=== PATIENT | male | born 1935 | race Caucasian/White ===

== ENCOUNTER 2020-06-14 12:05 | Inpatient (IN) | payer OTHER, BC ==
[2020-06-14] VITALS (79 sets, daily range): BP systolic 82–213; BP diastolic 43–183
[~2020-06-14] VITALS: Ht 177.8 cm; Wt 76.5 kg
--- NOTE | 2020-06-14 10:55 | NUR ---
1055- Patient arrived via EMS to ICU, placed on monitor and helped to settle in.
--- NOTE | 2020-06-14 11:50 | NUR ---
1123- Nurse Shiloh text Dr. Ny for notification of patient arrival. 1132- Nurse Shiloh text Dr. Ny basic vitals/assessments 1142- Nurse paged Dr. Ny for notification of patient arrival 1148- Dr. Ny now on unit to assess patient. Patients daughters number given to Dr. Ny for him to call her. Chart given to Dr. Ny from other hospital. Nurse to continue to monitor patient status.
[2020-06-14 12:19] LABS: BE(vivo) 0.7 mmol/L (-2 to +3); HCO3 24.1 mmol/L (22.0-26.0); PCO2 35.1 mmHg (35.0-45.0); PO2 85.3 mmHg (80.0-100.0); pH 7.455 (7.360-7.450); sO2 96.9 % (92.0-98.0)
--- NOTE | 2020-06-14 12:28 | NUR ---
Patient tachypnic, short of breath, tachycardic, hypertensive. Once he appears more stable and comfortable, nurse will provide bath and look at back side for skin assessment.
--- NOTE | 2020-06-14 12:54 | NUR ---
1254- Andrea with wound care here to evaluate patients skin.
--- NOTE | 2020-06-14 13:24 | NUR ---
WOUND CONSULT; NO WOUNDS. ONLY BRUISING VS DTI TO THE RIGHT 3RD AND THE 5TH TOE. THE PATIENT HAS BREATHING DIFFICULTY WELL BLOOD PRESSURE ISSUES. NO OBVIOUS AREAS OF PRESSURE TO BUTTOCKS/SACRUM/COCCYX OR HEELS. RECOMMENDATIONS. BETADINE TO RIGHT 3RD AND 5TH TOE,Q2H TURNING,PRAFO BOOTS RN PRESENT
--- NOTE | 2020-06-14 13:33 | NUR ---
6940- Nurse talked with patients daughter, Jessica De Guzman, to update her on patients status. Nurse also expressed the wish for a central line, and intubation. She expressed she needs to call her mom and see what their wishes are. Jessica also explained that patient has been taking care of his for six months, who is currently on hospice, covid (+). She also expressed that her brother, patients son, is at [facility], covid (+). She is the one available at this moment. 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 She also expressed he fell this year and his right knee was painful, but no injury. Jessica expressed that the patient lives at home and takes care of himself independently and is relatively healthy until this.
--- NOTE | 2020-06-14 14:30 | NUR ---
1430- Physician from hospital that transferred him here called to check to make sure he arrived ok. Nurse asked about patients dentures and glassess and they expressed all his belongings are there at that hospital with patients , who is a patient there.
--- NOTE | 2020-06-14 14:37 | NUR ---
1433- Patients daughter, Jessica De Guzman, called back and expressed that she spoke with patients and said to do everything we can, unless the patient doesn't want it. Nurse did talk with the patient about intubation, in lay kiana terms, he expressed he doesn't know what it all means. This was informed to patients daughter and she said to intubate and place a central line and do everything possible to help him. 1436- This was informed to Dr. Kidd.
--- NOTE | 2020-06-14 15:35 | NUR ---
1535- Patient intubated by Dr. Kidd. 1700- Og tube placed, Cunningham catheter placed, patient had not voided since arrival. Central line was placed. Sepsis protocol in place.
[2020-06-14 15:47] LABS: HEMATOCRIT 36.6 % (42.0-52.0); HEMOGLOBIN 12.4 gm/dL (14.0-18.0); MCH 31.1 pg (26.0-34.0); MCHC 33.8 g/dL (28.0-37.0); RBC 3.98 mil/uL (4.50-6.00); RDW 13.7 % (10.5-14.5); WBC 10.8 thou/uL (4.0-11.0)
[2020-06-14 15:57] LABS: CALCIUM 8.7 mg/dL (8.5-10.1); CREATININE 1.3 mg/dL (0.7-1.3); POTASSIUM 4.8 mmol/L (3.5-5.1)
[2020-06-14 16:03] LABS: ALBUMIN 2.2 g/dL (3.4-5.0); CALCIUM 8.5 mg/dL (8.5-10.1); CREATININE 1.3 mg/dL (0.7-1.3); TOTAL BILIRUBIN 0.6 mg/dL (0.2-1.0); TOTAL PROTEIN 5.7 g/dL (6.4-8.2)
--- NOTE | 2020-06-14 16:52 | NUR ---
VAT CONSULTED FOR A CL FOR THIS PT IN ICU WITH COVID. 5FRTL PLACED RT IJ, TIP AT THE CAJ, PLEASE SEE NI FOR DETAILS.
[2020-06-14 17:21] LABS: URINE BILIRUBIN NEGATIVE (Negative); URINE BLOOD 1+ (Negative); URINE CLARITY CLEAR; URINE COLOR YELLOW; URINE GLUCOSE-RANDOM* NEGATIVE (Negative); URINE KETONES NEGATIVE (Negative); URINE LEUKOCYTES-REFLEX NEGATIVE (Negative); URINE NITRITE-REFLEX NEGATIVE (Negative); URINE PROTEIN (DIPSTICK) 1+ (Negative); URINE SPECIFIC GRAVITY 1.025 (1.005-1.035); URINE UROBILINOGEN 0.2 E.U./dl (0.2-1.0)
[2020-06-14 17:22] LABS: BE(vivo) -1.9 mmol/L (-2 to +3); PCO2 40.1 mmHg (35.0-45.0); pH 7.377 (7.360-7.450); sO2 98.1 % (92.0-98.0)
[2020-06-14 17:47] LABS: BACTERIA-REFLEX 1-9 Few /HPF (None Seen); CASTS None Seen /LPF (None Seen); CRYSTALS None Seen /LPF (None Seen); SQUAMOUS 0-3 Few /LPF (0-3); URINE RBC 0-2 Rare /HPF (0-2); URINE WBC-REFLEX None Seen /HPF (0-5)
--- NOTE | 2020-06-14 18:52 | NUR ---
1851- 3 hour Reassessment sent to Dr. Ny Reported: Pt Status: Intubated at 1535, line placed, ponce placed MAP 58 CVP 6 Lactate: last was 1.5 UOP 270ml since ponce placed, trending down BMP: Just sent another lab.
[2020-06-14 19:14] LABS: CALCIUM 7.6 mg/dL (8.5-10.1); CREATININE 1.2 mg/dL (0.7-1.3); POTASSIUM 4.7 mmol/L (3.5-5.1)
[2020-06-15] VITALS (78 sets, daily range): BP systolic 85–162; BP diastolic 48–84
[2020-06-15 01:09] LABS: ABSOLUTE NEUTROPHILS 7.5 thou/uL (1.4-8.2); BASOPHILS 0.1 % (0.0-2.0); EOSINOPHILS 0.2 % (0.0-3.0); HEMATOCRIT 34.3 % (42.0-52.0); HEMOGLOBIN 11.3 gm/dL (14.0-18.0); LYMPHOCYTES 2.7 % (24.0-44.0); MCH 30.6 pg (26.0-34.0); MCV 92.6 fL (80.0-100.0); MONOCYTES 2.6 % (1.0-8.0); PLATELET COUNT 195 thou/uL (150-400); POLYS 94.4 % (36.0-66.0); RDW 13.5 % (10.5-14.5); WBC 7.9 thou/uL (4.0-11.0)
[2020-06-15 01:23] LABS: CALCIUM 7.7 mg/dL (8.5-10.1); CREATININE 1.1 mg/dL (0.7-1.3); POTASSIUM 4.8 mmol/L (3.5-5.1)
[2020-06-15 03:33] LABS: BE(vivo) -3.3 mmol/L (-2 to +3); HCO3 20.6 mmol/L (22.0-26.0); PCO2 32.8 mmHg (35.0-45.0); PO2 111.3 mmHg (80.0-100.0); pH 7.415 (7.360-7.450); sO2 98.2 % (92.0-98.0)
[2020-06-15 06:16] LABS: CALCIUM 8.1 mg/dL (8.5-10.1); CREATININE 1.1 mg/dL (0.7-1.3); POTASSIUM 4.6 mmol/L (3.5-5.1); TOTAL BILIRUBIN 0.4 mg/dL (0.2-1.0); TOTAL PROTEIN 5.9 g/dL (6.4-8.2)
[2020-06-15 06:39] LABS: APTT 33.1 Seconds (24.5-32.8); FIBRINOGEN 359.5 mg/dL (210-360); INR 1.1; PROTIME 11.6 Seconds (9.3-11.4)
--- NOTE | 2020-06-15 06:43 | NUR ---
Report received, care assumed. Pt continues on vent management. Not following commands. No sedation vacation done, pt not meeting criteria. FIO2 at 100%. Assessments done as documented. FIO2 decreased to 80% at 0400. Pt tolerating without complications. Will continue to monitor.
[2020-06-15] MEDS ORDERED: GUANFACINE HCL2 MG PO (10:41)
[2020-06-15] MEDS ORDERED: CLONIDINE HCL0.1 MG PO (10:45)
[2020-06-15] MEDS ORDERED: LOSARTAN POTASS50 MG PO (10:46)
--- NOTE | 2020-06-15 12:10 | EKG ---
[address] [place] [address] ELECTROCARDIOGRAM REPORT Name: ROD PERALTA Room #: 241-P [facility] IN .R.#: [id number] Admission: 06/14/20 Attend Phys: Narendra Cano MD Discharge: Date of : 35 Report #: [id number] [facility] Test Date: 2020-06-15 Test Time: 12:04:44 Pat Name: ROD PERALTA Department: Room: 241 P Gender: M Duct Cleaner: DIA : [id number] Requested By: Judy Padilla Order Number: [id number] MD: John Oates Measurements Intervals [place] Rate: 143 P: 34 MT: 139 QRS: 18 QRSD: 113 T: 161 QT: 271 QTc: 418 Interpretive Statements AFIB Repolarization abnormality, prob rate related No previous ECG available for comparison Electronically Signed On 06-15-2020 12:10:25 [employer] by John Oates [email or web address] <ELECTRONICALLY SIGNED> By: John Oates MD, [facility] 06/15/20 1210 1204 1204 John Oates MD, FACC /EPI
[2020-06-15 16:51] LABS: CALCIUM 6.6 mg/dL (8.5-10.1); MAGNESIUM 1.8 mg/dL (1.8-2.4); POTASSIUM 4.2 mmol/L (3.5-5.1)
--- NOTE | 2020-06-15 18:59 | NUR ---
REPORT RECIEVED O700. PT VENTILATOR SETTINGS TITRATED PER STROMM AT 1000. TUBE FEED INITIATED AT 1000 VITAL HP 65 ML/HR GOAL. 1030 PT HEART RATE INCREASING INTO 140'S. RONDA ORDERED CARDIZEN BOLUS AT 1030. CARDIZEN GTT INTITIATED AT 1130 AND CARDIOLOGY STARTED. EKG OBTAINED. IV METOPROLOL Q6 STARTED PER CARDIOLOGY. HR WITHIN GOAL SINCE METOPROLOL INITIATION. AFEBRILE. ADEQUATE OUTPUT. PROGRESSING IN NURSING PLAN OF CARE
[2020-06-16] VITALS (90 sets, daily range): BP systolic 86–126; BP diastolic 36–61
[2020-06-16 03:14] LABS: BE(vivo) -4.7 mmol/L (-2 to +3); HCO3 24.3 mmol/L (22.0-26.0); PCO2 64.7 mmHg (35.0-45.0); PO2 81.9 mmHg (80.0-100.0); sO2 93.1 % (92.0-98.0)
[2020-06-16 03:15] LABS: pH 7.192 (7.360-7.450)
[2020-06-16 04:51] LABS: ABSOLUTE NEUTROPHILS 10.6 thou/uL (1.4-8.2); BASOPHILS 0.5 % (0.0-2.0); HEMATOCRIT 32.2 % (42.0-52.0); HEMOGLOBIN 10.5 gm/dL (14.0-18.0); LYMPHOCYTES 2.1 % (24.0-44.0); MCH 30.8 pg (26.0-34.0); MCHC 32.6 g/dL (28.0-37.0); MCV 94.2 fL (80.0-100.0); PLATELET COUNT 193 thou/uL (150-400); POLYS 94.4 % (36.0-66.0); RBC 3.42 mil/uL (4.50-6.00); RDW 14.2 % (10.5-14.5); WBC 11.2 thou/uL (4.0-11.0)
[2020-06-16 05:23] LABS: ALBUMIN 1.9 g/dL (3.4-5.0); CALCIUM 8.1 mg/dL (8.5-10.1); CREATININE 1.2 mg/dL (0.7-1.3); POTASSIUM 4.6 mmol/L (3.5-5.1); TOTAL BILIRUBIN 0.2 mg/dL (0.2-1.0); TOTAL PROTEIN 5.7 g/dL (6.4-8.2)
--- NOTE | 2020-06-16 12:16 | NUR ---
WOUND CONSULT; THE RIGHT 3RD AND 5TH TOE. THE SKIN IS INTACT. THE TOES ARE NORMAL TEMP. THE PATIENT IS IN COVID RESTRICTIONS. MY CONCERNS FOR THESE AREAS GETTING WORSE IS MINIMAL BASED ON MY ASSESSMENT. I WILL CONTINUE TO FOLLOW AND BE WATCHFUL. DISCUSSED WITH RN.
--- NOTE | 2020-06-16 15:13 | NUR ---
1513- Patients daughter, Jessica, called and nurse updated her on patient status and plan of care. Nurse informed her that the Physician and nurse expressed patients teeth and glasses were in his wifes room the day he was transfered here. She had inquired. No belongings were sent with patient upon his transfer. Nurse expressed to return call to the other facility, or her moms new location, or EMS.
--- NOTE | 2020-06-16 15:26 | NUR ---
Patient admits from [facility] in transfer. Patient COVID positive Dec 9, admits with increase need in oxygen/resp distress. Patient intubated and sedated. Sp with RN and dtr Jessica De Guzman. She reports patient was caring for spouse, Caroline kennedy, who was on hospice with [facility]. She has subsequently recently placed her mom at [facility] with [facility] cont to follow at facility. Patient spouse also COVID positive. Patients Covid positive at [facility]. Patient dtr COVID positive quarntine at home. Jessica reports as of Friday she is not positive. She reports she has been helping her parents at home. Support to dtr. [facility] following for dc needs.
--- NOTE | 2020-06-16 19:22 | NUR ---
Patient not progressing towards plan of care as evidenced by continued need for ventilator/oxygen. Plan of care is to continue to monitor oxygenation/ventilation needs, vital signs, sedation requirements, and tube feedings. He has not had a bowel movement in a few days, will talk with physician tomorrow if does not have one tonight.
[2020-06-17] VITALS (32 sets, daily range): BP systolic 86–180; BP diastolic 47–98
[2020-06-17 06:00] LABS: CALCIUM 8.2 mg/dL (8.5-10.1); CREATININE 1.5 mg/dL (0.7-1.3); POTASSIUM 5.1 mmol/L (3.5-5.1)
[2020-06-17 06:04] LABS: ABSOLUTE NEUTROPHILS 11.6 thou/uL (1.4-8.2); BASOPHILS 0.1 % (0.0-2.0); HEMATOCRIT 32.5 % (42.0-52.0); HEMOGLOBIN 10.6 gm/dL (14.0-18.0); LYMPHOCYTES 1.3 % (24.0-44.0); MCH 30.5 pg (26.0-34.0); MCHC 32.6 g/dL (28.0-37.0); MCV 93.7 fL (80.0-100.0); MONOCYTES 6.5 % (1.0-8.0); PLATELET COUNT 203 thou/uL (150-400); POLYS 92.1 % (36.0-66.0); RBC 3.46 mil/uL (4.50-6.00); RDW 14.7 % (10.5-14.5); WBC 12.6 thou/uL (4.0-11.0)
--- NOTE | 2020-06-17 08:23 | NUR ---
0820- CPAP TRIAL [id number], PT HEART RATE 130'S, IRREGULAR, PATIENT DIAPHORETIC.
--- NOTE | 2020-06-17 16:26 | NUR ---
Nurse updated Dr. Dupree and Dr. Kidd in regards to patient having coffee ground output from oral gastric tube, with residual checks. Nurse also noted residual checks as were noted. Dr. Dupree expressed she will order protonix IV and something to help him have a bowel movement, as one has not been noted since the . Dr. Kidd expressed ok to continue tube feedings at this time. Since then, the last residual was in the lower 300ml range. Tube feeding on hold at this time and will reassess in one hour. Nurse to inform Dr. Dupree. Call placed to her at this time.
--- NOTE | 2020-06-17 18:49 | NUR ---
Patient oxygenation started to decrease into the lower 80%. Fio2 suction activated and nurse suctioned a copious amount of de leon secretions from his inline. Lung sounds are course now. Nurse to inform respiratory therapy and continue to monitor.
--- NOTE | 2020-06-17 19:23 | NUR ---
1914: Nurse talked with Jessica, patients daughter, and provided an update and plan of care. Nurse informed her of patient desaturation a bit ago. Her questions were answered.
[2020-06-18 03:15] LABS: HCO3 18.5 mmol/L (22.0-26.0); PCO2 124.4 mmHg (35.0-45.0); PO2 68.8 mmHg (80.0-100.0); sO2 70.6 % (92.0-98.0)
[2020-06-18 04:53] LABS: BE(vivo) -21.4 mmol/L (-2 to +3); sO2 64.2 % (92.0-98.0)
[2020-06-18 04:54] LABS: PCO2 106.3 mmHg (35.0-45.0); pH 6.768 (7.360-7.450)
--- NOTE | 2020-06-18 08:15 | NUR ---
Report received at 1900, care assumed. Assessments done as documented. Sedation vacation done. Lasted 15 mins. Pt became tachypneic with RR high 30s. Sedation medication titrated as per ICU protocol. Suctioning done, pt's O2 sats at 90% WITH 100% 80% FIO2. 2220: Pt hypoxic with 02 sat on low 80s at 100% FIO2. Suctioning done, no improvement in 02 sats, Pt restless. Sedation medication titrated as documented. Dr Aguayo notified. See new orders. 0230: Pt desating to low 70s, RT present, FI02 at 100% with peep of 8. Pt suctioned, sedation medication titrated. Pt has labored breathing. 0256: HR NOTED TO BE DROPPING TO LOW 30S, Yuriy graham initiated, se flow sheet. Dr aguayo notified of pt condition and ABG results. PEEP increased to 10. yuriy graham initiated again at 0348. see flow sheet. Pt oxygenating on the low 70s. Yuriy graham initiated again at 0417. See flow sheet. Dr Bah present, attempt to call family with after each code failed due to phone turned off and no voice mail set up. Dr Bah pronounced pt's at 0450. attempt to call family again not successful at 0455.
== END 2020-06-18 04:50 | DRG 208 ==
LOC: 2N 12:05 → ICU 12:07 → 4S 06-19 08:40 → PRE 06-19 12:00
PROVIDERS: Hospitalist; Pediatrics; Specialist; ADMIT Hospitalist; ATTEND Hospitalist
PROC: 5A09357 Assistance with Respiratory Ventilation, Less than 24 Consecutive Hours, Continuous Positive Airway Pressure (ICD-10-PCS; principal; 2020-06-14)
PROC: 5A1945Z Respiratory Ventilation, 24-96 Consecutive Hours (ICD-10-PCS; principal; 2020-06-14)
PROC: 0BH18EZ Insertion of Endotracheal Airway into Trachea, Via Natural or Artificial Opening Endoscopic (ICD-10-PCS; principal; 2020-06-14)
DX: U07.1 COVID-19 (principal); J96.01 Acute respiratory failure with hypoxia; E43 Unspecified severe protein-calorie malnutrition; J12.89 Other viral pneumonia; J15.9 Unspecified bacterial pneumonia; I13.0 Hypertensive heart and chronic kidney disease with heart failure and stage 1 through stage 4 chronic kidney disease, or unspecified chronic kidney disease; I50.42 Chronic combined systolic (congestive) and diastolic (congestive) heart failure; I48.20 Chronic atrial fibrillation, unspecified; I47.1 Supraventricular tachycardia; N18.30 Chronic kidney disease, stage 3 unspecified; I35.0 Nonrheumatic aortic (valve) stenosis; K21.9 Gastro-esophageal reflux disease without esophagitis; M19.90 Unspecified osteoarthritis, unspecified site; I95.9 Hypotension, unspecified; I46.9 Cardiac arrest, cause unspecified; Z96.643 Presence of artificial hip joint, bilateral; Z68.24 Body mass index [BMI] 24.0-24.9, adult; Z88.0 Allergy status to penicillin; Z79.899 Other long term (current) drug therapy
CPT/HCPCS: 10078; 10204